=== PATIENT | male | born 1970 | race Hispanic/Latino ===

== ENCOUNTER → 2016-10-11 | Outpatient (CLI) | payer OTHER ==
[~2016-10-11] MED LIST: ALBUTEROL17 GM IH; CITALOPRAM HBR40 MG PO; DIAZEPAM5 MG PO; FLEXERIL10 MG PO; LORTAB 5-325 M1 EACH PO; NAPROSYN500 MG PO; OMEPRAZOLE40 M1 PO
== END | disposition home or self-care (01) ==
LOC: CDC 08:22
DX: Z01.810 Encounter for preprocedural cardiovascular examination (principal)
CPT/HCPCS: 93000